=== PATIENT | male | born 1960 | race Caucasian/White ===

== ENCOUNTER 2023-04-26 14:22 | Emergency (ER) | payer OTHER ==
[~2023-04-26] VITALS: Ht 190.5 cm; Wt 85.7 kg
[2023-04-26] MEDS ORDERED: ACET1TAB23 PO (15:40)
[2023-04-26] MEDS ORDERED: ONDA4TAB5 PO (15:40)
[2023-04-26] MEDS ORDERED: FLAS1KIT2 TP (15:43)
[2023-04-26] MEDS ORDERED: FLAS1EAC2 TP (15:43)
[2023-04-26 16:05] VITALS: BP 139/86; TEMP 98.2; O2SAT 97
== END 2023-04-26 16:06 | disposition home or self-care (01) ==
LOC: ER 14:22
DX: S09.90XA Unspecified injury of head, initial encounter (principal); E11.9 Type 2 diabetes mellitus without complications; E78.5 Hyperlipidemia, unspecified; Z79.899 Other long term (current) drug therapy; V49.9XXA Car occupant (driver) (passenger) injured in unspecified traffic accident, initial encounter; Y93.89 Activity, other specified; Y92.89 Other specified places as the place of occurrence of the external cause; Y99.8 Other external cause status
CPT/HCPCS: A4606; A4663